=== PATIENT | male | born 1995 | race Caucasian/White ===

== ENCOUNTER 2019-03-20 17:30 | Emergency (ER) | payer BC ==
[~2019-03-20] VITALS: Ht 180.3 cm; Wt 93.0 kg
[~2019-03-20 17:30] MED LIST: HYDR-3164 PO; SULF1TAB24 PO
[2019-03-20] MEDS ORDERED: HYDROcodone/APAP 5/325MG 1 TAB TABLET PO ONE (18:00)
[2019-03-20] MEDS ORDERED: LIDOCAINE 1% Multi-Dose 20 ML VIAL. INJ ONE ×2 (18:00→22:00)
--- NOTE | 2019-03-20 19:19 | PHYS DOC ---
Past Medical History Past Medical History: No Pertinent History (PEG RUSSELL APRN) Past Surgical History: No Surgical History Additional Past Surgical Histo: [place] Teeth (PEG RUSSELL APRN) Additional Information: chew tobacco Alcohol Use: Occasionally Drug Use: None (PEG RUSSELL APRN) Adult General Chief Complaint Chief Complaint: UPPER EXTREMITY INJURY HPI HPI 24-year-old presents to ER via POV for complaints of left forearm laceration. Patient reports he was using a grinder operator tool and is not completely sure as to how the injury occurred but the grinder operator tool struck his left forearm causing the laceration. Patient denies any other injury. Patient states he has been anxious and felt lightheaded denies syncope. Patient reports injury occurred just prior to arrival. Patient reports he is right hand dominant. Pt is not up-to-date on his tetanus within the past 5 years. (PEG RUSSELL APRN) Review of Systems Review of Systems Constitutional: Denies fatigue GI: Denies nausea, vomiting Musculoskeletal: Denies back pain. Reports lt forearm pain/laceration Neurologic: Denies focal weakness or sensory changes [] All other systems were reviewed and found to be within normal limits, except as documented in this note. (PEG RUSSELL APRN) Current Medications Current Medications Current Medications Medications (Trade) Dose Ordered Sig/Angie Start Time Stop Time Status Last Admin Dose Admin Acetaminophen/ Hydrocodone Bitart (Lortab 5/325) 1 tab 1X ONCE 03/20/19 18:00 03/20/19 18:01 DC 03/20/19 17:56 1 TAB Diphtheria/ Tetanus/Acell Pertussis (Boostrix) 0.5 ml ONCE ONCE 03/20/19 19:30 03/20/19 19:31 DC 03/20/19 19:24 0.5 ML Lidocaine HCl (Lidocaine 1% 20ml Vial) 20 ml 1X ONCE 03/20/19 22:00 03/20/19 22:00 DC 03/20/19 19:55 20 ML Neomycin/ Polymyxin/ Bacitracin (Triple Antibiotic Ointment) 1 pkt 1X ONCE 03/20/19 22:00 03/20/19 22:00 DC 03/20/19 21:45 1 PKT (LISBET AMBROSE DO) Allergies Allergies Allergies Coded Allergies Type Severity Reaction Last Updated Verified No Known Drug Allergies 04/13/16 No (LISBET AMBROSE DO) Physical Exam Physical Exam Constitutional: Well developed, well nourished, moderate distress initially w/anxiety- pale facial color, non-toxic appearance. [] HENT: Normocephalic, atraumatic, oropharynx moist, nose normal. [] Eyes: Pupils equal, conjunctiva normal, no discharge. [] Neck: Normal range of motion, supple Cardiovascular: Heart rate regular Lungs & Thorax: Resp. equal/nonlabored Skin: Warm, dry, no erythema, no rash. [] Back: Full ROM Extremities: No cyanosis, no clubbing, ROM intact, no edema. 2+ bilat. radial. Laceration to left posterior forearm with injury extending through fascia and muscle exposure. Pt has full range of motion in left upper extremity. Cap refill brisk. No active bleeding on initial exam. No tenderness in joints. Tender at lac site. Full extension/flexion lt hand. Bisque Kiln Placer equal bilat. Neurologic: Alert and oriented X 3, normal motor function, normal sensory function, no focal deficits noted. [] Psychologic: Affect normal, judgement normal, mood normal. [] (PEG RUSSELL APRN) Physical Exam Constitutional: Well developed, well nourished Skin: Warm, dry, left posterior forearm laceration as below Extremities: 10cm linear laceration to left posterior forearm through fascia with muscle exposure, patient does have full flex/extention of fingers and wrist as well as pronation/supination, CR < 2 sec, Radial pulse +2. (LISBET AMBROSE DO) Current Patient Data Vital Signs Vital Signs Date Time Temp Pulse Resp B/P (MAP) Pulse Ox O2 Delivery O2 Flow Rate FiO2 03/20/19 21:30 87 18 130/72 (91) 98 Room Air 03/20/19 17:48 98.4 98.4 (LISBET AMBROSE DO) EKG EKG [] (PEG RUSSELL APRN) Radiology/Procedures Radiology/Procedures PROCEDURE: FOREARM LEFT 2 view study of the left forearm Clinical indications: Left forearm injury posteriorly. Possible foreign body. FINDINGS: No acute fracture or dislocation or lytic process is seen. Soft tissue injury of the medial anterior aspect of the midforearm is evident. Radiodensity is seen which may be related to a bandage. No other radiopaque foreign body is evident. IMPRESSION: No acute fracture. Electronically signed by: Nathan Andrews MD (03/20/2019 8:02 PM) [facility] DICTATED and SIGNED BY: NATHAN ANDREWS MD DATE: 03/20/192001 Laceration Repair by me: 1800 Anesthesia: 1% lidocaine locally 4mL Location: Left posterior forearm Tendon/Joint/Nerves: No injury Foreign body: On initial exam patient had small black flecks of foreign body material which was removed following copious irrigation with normal saline and surgical scrub brush. None detected after the copious irrigation and exploration Technique: Simple Interrupted Sutures Complexity: #8 5.0 Vicryl for fascia repair #13 5.0 Nylon exterior lac closure Post Closure Length: 10 cm Patient's bleeding was easily controlled in the department and there is no indication of anemia. No evidence of compartment syndrome, neurologic injury, vascular injury, open joint, tendon laceration, or foreign body. Patient is appropriate for outpatient follow up. 48 hour wound check. Scar minimization instructions given. (PEG RUSSELL APRN) Course & Med Decision Making Course & Med Decision Making Pertinent Labs and Imaging studies reviewed. (See chart for details) Patient was evaluated in the ER following an accidental injury to left forearm causing large laceration with muscle and fascia injury. Patient had full range of motion and was PMS intact in left upper extremity. Patient had flexor/extension intact left upper extremity. X-ray was obtained. Imaging results were discussed with patient and his family who remains at bedside. Extensive irrigation on left forearm done prior to laceration repair. Patient did have small foreign bodies in the laceration which were removed prior to laceration repair. No visible tendon injury on exam. Pt tolerated the procedure well with minimal blood loss- fascia was repaired with vicryl sutures and then nylon used to approximate outer layer of laceration. Wound was well morenita roximated. Pt had full ROM in lt upper extremity. No difficulty with flare breaker in lt upper extremity. Pt remained PMS intact prior to and following lac repair. Home wound care was discussed with patient and its who remained at bedside during procedure. Discussed plans for Velcro splint to left wrist to prevent tension on sutures and excessive movement in left forearm. Pt was advised on removing splint multiple times to monitor wound as well as range of motion with light movements in joints to prevent stiffness/locking. Education provided on signs and symptoms to return to ER. Discharge instructions were discussed. Patient to follow-up with primary care physician if symptoms persist or with any concerns. Patient will be sent home with prescription for Keflex and Bluejacket. Pt to have sutures removed by his primary care physician in 8-10 days. Patient was up dated on his tetanus while in the ER and provided with dose of pain medication. Pt's case and plan of care was discussed with Dr. Ambrose who came to pt's room with this provider and evaluated lt forearm laceration/upper extremity PMS condition prior to laceration repair by this provider. (PEG RUSSELL APRN) Dragon Disclaimer Dragon Disclaimer This electronic medical record was generated, in whole or in part, using a voice recognition dictation system. (PEG RUSSELL APRN) Departure Departure Impression: Primary Impression: Laceration of forearm, left Additional Impression: Laceration of fascia of flexor muscle at forearm level Disposition: 01 HOME, SELF-CARE Condition: STABLE Referrals: PATITO PAREDES MD (PCP) Patient Instructions: Laceration Care, Adult, Sutured Wound Care Additional Instructions: Keep wound dry and clean for 24 hours and then you can carefully shower. As discussed remove the splint to monitor the wound for signs of infection. Wear splint to minimize wrist movement to prevent tension on your skin and muscle laceration site. Remove the splint multiple times daily to perform light range of motion with the joints in your left arm. You were updated on your tetanus while in the ER. Tylenol and/or ibuprofen as needed for pain as directed on container. If taking the prescribed Bluejacket tablet avoid additional Tylenol. Sutures out in 8-10 days. Scripts Hydrocodone/Apap 5-325 (NORCO 5-325 TABLET) 1 Each Tablet 1 TAB PO PRN Q6HRS PRN for PAIN, #10 TAB 0 Refills No drinking alcohol or driving while taking this medication Prov: PEG RUSSELL APRN 03/20/19 Cephalexin (KEFLEX) 500 Mg Capsule 1 CAP PO BID, #14 CAP 0 Refills Prov: PEG RUSSELL APRN 03/20/19 Attending Signature Attending Signature I have personally interviewed and examined the patient. All charts, labs, and imaging studies were reviewed. I agree with the [employer]'s findings, exam, and plan. 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
[2019-03-20] MEDS ORDERED: DIPHTH,PERTUSS(ACELL),TET TOX 0.5 ML DISP.SYRIN. VAX IM ONE (19:30)
--- NOTE | 2019-03-20 20:05 | RAD ---
2 view study of the left forearm Clinical indications: Left forearm injury posteriorly. Possible foreign body. FINDINGS: No acute fracture or dislocation or lytic process is seen. Soft tissue injury of the medial anterior aspect of the midforearm is evident. Radiodensity is seen which may be related to a bandage. No other radiopaque foreign body is evident. IMPRESSION: No acute fracture. Electronically signed by: Gabe Andrews MD (03/20/2019 8:02 PM) [facility]
[2019-03-20] MEDS ORDERED: HYDR-3164 PO (21:15)
[2019-03-20] MEDS ORDERED: CEPH-264 PO (21:15)
[2019-03-20 21:30] VITALS: BP 130/72
[2019-03-20] MEDS ORDERED: NEOMY/BACITR/POLYMYXIN OINT PACKET. TP ONE (22:00)
== END 2019-03-20 21:50 | disposition home or self-care (01) ==
LOC: ER 17:30
DX: S56.222A Laceration of other flexor muscle, fascia and tendon at forearm level, left arm, initial encounter (principal); F17.220 Nicotine dependence, chewing tobacco, uncomplicated; W26.8XXA Contact with other sharp object(s), not elsewhere classified, initial encounter; Y93.89 Activity, other specified; Y92.89 Other specified places as the place of occurrence of the external cause; Y99.0 Civilian activity done for income or pay
CPT/HCPCS: 10120; 12034; 73090; 90471; 90715; 99284